=== PATIENT | female | born 1955 | race Caucasian/White ===

== ENCOUNTER 2018-11-02 09:30 | Outpatient (RCR) | payer MEDICARE, MEDICAID | END 2018-11-02 10:08 | disposition home or self-care (01) | LOC: WSC 09:30 | DX: M54.5 Low back pain (principal) ==

== ENCOUNTER 2019-03-11 10:36 | Emergency (ER) | payer MEDICARE ==
[~2019-03-11] VITALS: Ht 162.6 cm; Wt 55.9 kg
[2019-03-11 10:37] VITALS: TEMP 98.2
[2019-03-11 11:02] LABS: BASO % 0.2 % (0.0-2.0); EOS % 0.4 % (0-4.0); GRAN # 6.9 (1.4-6.5); GRAN % 82.7 % (42.2-75.2); HEMATOCRIT 43.3 % (37.0-47.0); HEMOGLOBIN 14.5 g/dl (12.5-16.0); LYMPH % 11.9 % (20.0-51.0); MEAN CELL VOLUME 88 fl (80.0-100.0); MEAN CORPUSCULAR HEMOGLOBIN 29 pg (27.0-31.0); MEAN CORPUSCULAR HGB CONC 34 g/dl (33.0-37.0); MEAN PLATELET VOLUME 9.6 fl (7.4-10.4); MONO # 0.4 (0.1-0.6); MONO % 4.4 % (1.7-9.3); PLATELET COUNT 259 K/mm3 (130-400); RED BLOOD COUNT 4.94 M/mm3 (4.10-5.30); REDCELL DISTRIBUTION WIDTH-CV 13.2 % (11.5-14.5)
[2019-03-11 11:15] LABS: ALBUMIN 4.2 gm/dL (3.5-5.0); BILIRUBIN,TOTAL 0.4 mg/dL (0.0-1.0); C-REACTIVE PROTEIN 6.9 mg/dL (0.0-0.9); CALCIUM 9.3 mg/dL (8.4-10.2); CREATININE, serum 0.52 (0.52-1.25); POTASSIUM 3.9 mmol/L (3.4-5.0); TOTAL PROTEIN 7.3 gm/dL (6.4-8.2)
[2019-03-11] MEDS ORDERED: ZOFRAN ODT4 MG PO (11:34)
[2019-03-11 12:26] VITALS: BP 145/88; PULSE 82
== END 2019-03-11 12:30 | disposition home or self-care (01) ==
LOC: COL.ER 10:36
PROVIDERS: Emergency Medicine
DX: R11.2 Nausea with vomiting, unspecified (principal); R19.7 Diarrhea, unspecified; R55 Syncope and collapse; Z90.89 Acquired absence of other organs
CPT/HCPCS: J2550; J7030

== ENCOUNTER → 2020-02-03 | Outpatient (CLI) | payer MEDICARE, MEDICAID ==
[~2020-02-03] MED LIST: ZOFRAN ODT4 MG PO
== END ==
LOC: MC.RAD 08:00
DX: N63.20 Unspecified lump in the left breast, unspecified quadrant (principal)